=== PATIENT | female | born 1955 | race Caucasian/White ===

== ENCOUNTER 2016-07-14 17:19 | Inpatient (IN) | payer OTHER ==
[~2016-07-14] VITALS: Ht 167.6 cm; Wt 65.0 kg
[2016-07-14 19:13] LABS: RED BLOOD COUNT 4.75 M/UL (4.00-5.10); WHITE BLOOD COUNT 10.1 K/UL (4.5-11.0)
[2016-07-15] MEDS ORDERED: NORVASC 5 MG TAB5 MG PO (00:14)
[2016-07-15] MEDS ORDERED: ZOLOFT25 MG PO (00:14)
[2016-07-15] MEDS ORDERED: REMERON15 MG PO ×2 (00:15)
[2016-07-15 06:44] LABS: HEMOGLOBIN 13.6 gm/dl (12.3-15.3); RED BLOOD COUNT 4.7 M/UL (4.00-5.10)
[2016-07-15 06:47] LABS: WHITE BLOOD COUNT 6.7 K/UL (4.5-11.0)
[2016-07-16 04:24] LABS: HEMOGLOBIN 12.7 gm/dl (12.3-15.3); RED BLOOD COUNT 4.38 M/UL (4.00-5.10)
[2016-07-16 04:25] LABS: WHITE BLOOD COUNT 11.8 K/UL (4.5-11.0)
[2016-07-17 05:00] LABS: WHITE BLOOD COUNT 9.9 K/UL (4.5-11.0)
[2016-07-17 05:05] LABS: HEMOGLOBIN 15.2 gm/dl (12.3-15.3); RED BLOOD COUNT 5.14 M/UL (4.00-5.10)
[2016-07-20 04:18] LABS: RED BLOOD COUNT 4.7 M/UL (4.00-5.10)
[2016-07-20 05:04] LABS: WHITE BLOOD COUNT 17.1 K/UL (4.5-11.0)
[2016-07-20] MEDS ORDERED: PHENERGAN 25 MG25 M1 PO (18:12)
== END 2016-07-20 19:06 | disposition home or self-care (01) | DRG 683 ==
LOC: ER1 17:19 → MED SURG 4 20:32 → ZEROF 20:32 → MED SURG 4 22:20
PROVIDERS: Internal Medicine; Internal Medicine Infectious Disease; Physician Assistant; Physician Assistant Medical; ADMIT Internal Medicine
PROC: 0HBEXZX Excision of Left Lower Arm Skin, External Approach, Diagnostic (ICD-10-PCS; principal; 2016-07-16)
DX: N17.9 Acute kidney failure, unspecified (principal); I96 Gangrene, not elsewhere classified; D69.6 Thrombocytopenia, unspecified; E86.0 Dehydration; E87.6 Hypokalemia; B18.2 Chronic viral hepatitis C; B34.9 Viral infection, unspecified; I10 Essential (primary) hypertension; L98.9 Disorder of the skin and subcutaneous tissue, unspecified; K21.9 Gastro-esophageal reflux disease without esophagitis; D72.829 Elevated white blood cell count, unspecified; T38.0X5A Adverse effect of glucocorticoids and synthetic analogues, initial encounter; R11.2 Nausea with vomiting, unspecified; F17.210 Nicotine dependence, cigarettes, uncomplicated; R63.4 Abnormal weight loss; Z68.23 Body mass index [BMI] 23.0-23.9, adult; F32.9 Major depressive disorder, single episode, unspecified; Z87.898 Personal history of other specified conditions; Z79.899 Other long term (current) drug therapy; Z98.51 Tubal ligation status; Z98.890 Other specified postprocedural states; Z84.89 Family history of other specified conditions
CPT/HCPCS: 36415; 70450; 71010; 76705; 78227; 80048; 80053; 80074; 80076; 80307; 81001; 82550; 82553; 83605; 83735; 83874; 84443; 84484; 85025; 85027; 85610; 85730; 86140; 86162; 86225; 86235; 87040; 87086; 93005; 96361; 96365; 96375; 99285; A9537; J2405; J2543; J2550; J2805; J3370; J7030; J7050; Q0162